=== PATIENT | female | born 1980 | race Caucasian/White ===

== ENCOUNTER 2017-06-04 22:27 | Emergency (ER) | payer MEDICAID ==
[~2017-06-04] VITALS: Ht 167.6 cm; Wt 119.7 kg
--- NOTE | 2017-06-04 22:40 | NUR ---
PT BIBSELF, AMBULATORY TO ER BED 8. PT C/O HEADACHE X 1 WEEK AND DIZZINESS STARTING TODAY. PT AOX3 RR EVEN AND UNLABORED. NO SOB NOTED. NAD NOTED. NO NVD AT THIS TIME. PT GOWNED AND PLACED ON MONITOR WAITING FOR MD MORALES.
--- NOTE | 2017-06-04 22:42 | NUR ---
DR. CAAL AT BEDSIDE FOR EVAL.
--- NOTE | 2017-06-04 23:10 | NUR ---
PT TO CT.
--- NOTE | 2017-06-04 23:20 | NUR ---
PT RETURNED FROM CT.
[2017-06-04 23:26] LABS: BASOPHILS % (AUTO) 0.4 % (0.0-2.0); EOSINOPHILS # (AUTO) 0.3 /CMM (0.0-0.7); EOSINOPHILS % (AUTO) 2.3 % (0.0-6.0); HEMATOCRIT 41 % (33-45); HEMOGLOBIN 13.4 g/dL (11.5-14.8); LYMPHOCYTES # (AUTO) 3.7 /CMM (0.8-4.8); LYMPHOCYTES % (AUTO) 32.7 % (20.0-44.0); MEAN CORPUSCULAR HEMOGLOBIN 29 PG (26.0-33.0); MEAN CORPUSCULAR HGB CONC 33 g/dl (31.0-36.0); MEAN CORPUSCULAR VOLUME 89 fL (82-100); MONOCYTES # (AUTO) 1.1 /CMM (0.1-1.30); MONOCYTES % (AUTO) 9.3 % (2.0-12.0); NEUTROPHILS # (AUTO) 6.3 /CMM (1.8-8.9); NEUTROPHILS % (AUTO) 55.3 % (43.0-81.0); PLATELET COUNT (AUTO) 222 /CMM (150-450); RDW COEFFICIENT OF VARIATION 13.9 (11.5-15.0); RED BLOOD CELL COUNT(AUTO) 4.57 MIL/uL (4.0-5.2); WHITE BLOOD COUNT (AUTO) 11.4 K/uL (4.3-11.0)
[2017-06-04 23:36] LABS: CALCIUM, SERUM 9.4 mg/dL (8.5-10.1); CREATININE 0.7 mg/dL (0.6-1.3); POTASSIUM 3.9 mmol/L (3.5-5.1)
[2017-06-04 23:39] LABS: INR 0.98 (0.87-1.13); PROTHROMBIN TIME 10.2 SECS (9.5-12.7)
[2017-06-04 23:42] LABS: ALBUMIN 3.5 g/dL (3.4-5.0); BILIRUBIN,TOTAL 0.3 mg/dL (0.2-1.0); TOTAL PROTEIN, SERUM 7.7 g/dL (6.4-8.2)
[2017-06-04] MEDS ORDERED: diphenhydrAMINE HCL 50 MG/ML VIAL ONE (23:56)
[2017-06-04] MEDS ORDERED: METOCLOPRAMIDE HCL 10 MG/2 ML VIAL ONE (23:56)
[2017-06-05] MEDS ORDERED: METOCLOPRAMIDE HCL 10 MG/2 ML VIAL IV ONE
[2017-06-05] MEDS ORDERED: diphenhydrAMINE HCL 50 MG/ML VIAL IV ONE
--- NOTE | 2017-06-05 01:15 | NUR ---
DR. CAAL AT BEDSIDE SPEAKING TO PT REGARDING RESULTS.
--- NOTE | 2017-06-05 01:21 | NUR ---
IV removed. Catheter intact and site benign. Pressure and 4x4 applied to site. No bleeding noted. Patient discharged to home in stable condition. Written and verbal after care instructions given. Patient verbalizes understanding of instruction. Pt ambulatory with a steady gait.
[2017-06-05 01:24] VITALS: BP 123/67
== END 2017-06-05 01:25 | disposition home or self-care (01) ==
LOC: ER 22:35
DX: G43.909 Migraine, unspecified, not intractable, without status migrainosus (principal); E89.0 Postprocedural hypothyroidism; R79.1 Abnormal coagulation profile
CPT/HCPCS: 36415; 70450; 80048; 80076; 85025; 85730; 96374; 96375; 99285; A4606; J1200; J2765; Z7610